=== PATIENT | male | born 1975 | race Caucasian/White ===

== ENCOUNTER 2019-01-21 16:51 | Emergency (ER) | payer MEDICAID, SELFPAY ==
[2019-01-21 17:07] VITALS: BP 132/87; PULSE 70; RESP 20; TEMP 36.9; O2SAT 97
--- NOTE | 2019-01-21 17:12 | DI.RAD_ITS ---
SYMPTOM/DIAGNOSIS: PAIN, S/P DIRECT BLOW RIGHT KNEE: There is no evidence of fracture. A joint effusion is seen. There are degenerative changes of the lateral femoral tibial joint. There is some anterior soft tissue swelling. There is spurring at the patellofemoral joint. IMPRESSION: Joint effusion and anterior soft tissue swelling. No fracture is identified.
[2019-01-21] MEDS: Acetaminophen 500 MG TAB 1000 MG PO (17:17)
--- NOTE | 2019-01-21 17:17 | W.ED.GENAD ---
Discharge Plan Disposition Patient Disposition: HOME Condition: Stable Discharge Details Chief Complaint: Orthopedic Clinical Impression: Contusion of right knee Primary Care Provider: None,None ED Provider: Brennan Jesus Home Meds and New Rx's Prescriptions: No Action oxycodone-acetaminophen [Percocet] 1 EACH tablet 1 ea PO Q6H PRN PRNQty: 20 RF: 0 Discharge Instructions Instructions: Contusion in Adults (ED) Medical Decision Making 43 yo male comes in with righ tknee pain. He was working on a car yesterday and the front strut hit his right knee. Denies loc or hitting head. He has pain over the medial right knee with swelling. Is able to bend to about 30 degrees then limited by pain and can full straighten the leg. I suspect contusion but will xray to eval for fx xray negative on my read, vrad agrees no acute fx but does have joint effusion likely from the contusion. Will have him f/u with pcp if pain continues in a week and return if worsening Differential Diagnosis contusion, sprain, fx Imaging Data Radiologic Study: Attestation: I personally reviewed and interpreted this imaging study as follows: Imaging: X-Ray Radiologist's impression: IMPRESSION: 1. No fracture or dislocation. 2. Moderate joint effusion and mild anterior soft tissue swelling. 3. 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 HPI General Mode of arrival: ambulatory. Date/Time Provider Initiated Documentation: 01/21/19 17:04. Limitations to Documentation: no limitations. Information obtained by: patient. History of Present Illness 43 year old M presents to the emergency department with the chief complaint of right knee pain, described as moderate, Quality is described as aching, and is localized to the right and lower extremity. Patient reports no radiation. Patient started experiencing this day(s) (1) and it has been constant. Rest improves symptom(s), Movement worsens symptoms . Patient notes no other symptoms.. Patient did receive the following treatments prior to arrival, NSAID Related Data Home Medications Medication Instructions Recorded Confirmed oxycodone-acetaminophen [Percocet 1 ea PO Q6H PRN PRN #20 tablet 08/01/15 5-325 mg Tablet] Previous Rx's Medication Instructions Recorded oxycodone-acetaminophen [Percocet 1 ea PO Q6H PRN PRN #20 tablet 08/01/15 5-325 mg Tablet] Allergies Allergy/AdvReac Type Severity Reaction Status Date / Time codeine Allergy Intermediate Hives Unverified 01/21/19 17:09 General Stated Complaint: Orthopedic JJ: 3 Review of Systems Review of Systems All systems reviewed & are unremarkable except as noted in HPI and below Constitutional Denies chills, Denies fever(s) and Denies weakness Cardiovascular Denies chest pain and Denies dyspnea Respiratory Denies cough and Denies dyspnea Gastrointestinal Denies abdominal pain, Denies nausea and Denies vomiting Integumentary/Breasts Denies rash Neurologic Denies weakness PFSH Social History Smoking/Tobacco Use Status: Current every day Drug use: Occasionally Do you feel safe at home: Yes Do you feel safe in your relationship?: Yes Exam Const General: no acute distress Orientation: alert HENMT Head: normal to inspection Ears: external ears normal General nose exam: external nose normal Mouth: moist mucous membranes Eyes General: appearance normal, both eyes and all related structures Neck Neck: normal visual inspection Resp Effort & Inspection: normal respiratory effort and able to speak in complete sentences Cardio Rate: regular rate Skin General skin exam: no rashes or lesions noted Neuro General: alert and oriented x3 Extrem General: normal capillary refill Psych Mental Status: mental status grossly normal Course Vital Signs Temperature 36.9 C 01/21/19 17:07 Pulse 70 01/21/19 17:07 Respiratory Rate 20 01/21/19 17:07 Blood Pressure 132/87 01/21/19 17:07 Pulse Oximetry 97 01/21/19 17:07 Temperature 36.9 C 01/21/19 17:07 Temperature Source Temporal Artery Scan 01/21/19 17:07 Pulse 70 01/21/19 17:07 Respiratory Rate 20 01/21/19 17:07 Respiratory Effort Non-Labored 01/21/19 17:07 Blood Pressure 132/87 01/21/19 17:07 Pulse Oximetry 97 01/21/19 17:07 Pain Level 8 01/21/19 17:17
--- NOTE | 2019-01-21 17:20 | ED.GENADUL_ITS ---
Discharge Plan Disposition Patient Disposition: HOME Condition: Stable Discharge Details Chief Complaint: Orthopedic Clinical Impression: Contusion of right knee Primary Care Provider: None,None ED Provider: Brennan Jesus Home Meds and New Rx's Prescriptions: No Action oxycodone-acetaminophen [Percocet] 1 EACH tablet 1 ea PO Q6H PRN PRNQty: 20 RF: 0 Discharge Instructions Instructions: Contusion in Adults (ED) Medical Decision Making 43 yo male comes in with righ tknee pain. He was working on a car yesterday and the front strut hit his right knee. Denies loc or hitting head. He has pain over the medial right knee with swelling. Is able to bend to about 30 degrees then limited by pain and can full straighten the leg. I suspect contusion but will xray to eval for fx xray negative on my read, vrad agrees no acute fx but does have joint effusion likely from the contusion. Will have him f/u with pcp if pain continues in a week and return if worsening Differential Diagnosis contusion, sprain, fx Imaging Data Radiologic Study: Attestation: I personally reviewed and interpreted this imaging study as follows: Imaging: X-Ray Radiologist's impression: IMPRESSION: 1. No fracture or dislocation. 2. Moderate joint effusion and mild anterior soft tissue swelling. 3. 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 HPI General Mode of arrival: ambulatory . Date/Time Provider Initiated Documentation: 01/21/19 17:04 . Limitations to Documentation: no limitations . Information obtained by: patient . History of Present Illness 43 year old M presents to the emergency department with the chief complaint of right knee pain, described as moderate, Quality is described as aching, and is localized to the right and lower extremity. Patient reports no radiation. Patient started experiencing this day(s) (1) and it has been constant. Rest improves symptom(s), Movement worsens symptoms . Patient notes no other symptoms.. Patient did receive the following treatments prior to arrival, NSAID Related Data Home Medications Medication Instructions Recorded Confirmed oxycodone-acetaminophen [Percocet 1 ea PO Q6H PRN PRN #20 tablet 08/01/15 5-325 mg Tablet] Previous Rx's Medication Instructions Recorded oxycodone-acetaminophen [Percocet 1 ea PO Q6H PRN PRN #20 tablet 08/01/15 5-325 mg Tablet] Allergies Allergy/AdvReac Type Severity Reaction Status Date / Time codeine Allergy Intermediate Hives Unverified 01/21/19 17:09 General Stated Complaint: Orthopedic JJ: 3 Review of Systems Review of Systems All systems reviewed & are unremarkable except as noted in HPI and below Constitutional Denies chills, Denies fever(s) and Denies weakness Cardiovascular Denies chest pain and Denies dyspnea Respiratory Denies cough and Denies dyspnea Gastrointestinal Denies abdominal pain, Denies nausea and Denies vomiting Integumentary/Breasts Denies rash Neurologic Denies weakness PFSH Social History Smoking/Tobacco Use Status: Current every day Drug use: Occasionally Do you feel safe at home: Yes Do you feel safe in your relationship?: Yes Exam Const General: no acute distress Orientation: alert HENMT Head: normal to inspection Ears: external ears normal General nose exam: external nose normal Mouth: moist mucous membranes Eyes General: appearance normal, both eyes and all related structures Neck Neck: normal visual inspection Resp Effort & Inspection: normal respiratory effort and able to speak in complete sentences Cardio Rate: regular rate Skin General skin exam: no rashes or lesions noted Neuro General: alert and oriented x3 Extrem General: normal capillary refill Psych Mental Status: mental status grossly normal Course Vital Signs Temperature 36.9 C 01/21/19 17:07 Pulse 70 01/21/19 17:07 Respiratory Rate 20 01/21/19 17:07 Blood Pressure 132/87 01/21/19 17:07 Pulse Oximetry 97 01/21/19 17:07 Temperature 36.9 C 01/21/19 17:07 Temperature Source Temporal Artery Scan 01/21/19 17:07 Pulse 70 01/21/19 17:07 Respiratory Rate 20 01/21/19 17:07 Respiratory Effort Non-Labored 01/21/19 17:07 Blood Pressure 132/87 01/21/19 17:07 Pulse Oximetry 97 01/21/19 17:07 Pain Level 8 01/21/19 17:17
--- NOTE | 2019-01-21 17:59 | DI.VRAD_ITS ---
EXAM: XR Right Knee, 3 Views EXAM DATE/TIME: 01/21/2019 5:13 PM CLINICAL HISTORY: 43 years old, male; Injury or trauma; Injury history: Hit a direct blow to the anterior knee yesterday; Initial encounter; Blunt trauma; Right; Injury date: 01/21/2019 TECHNIQUE: Imaging protocol: XR Right knee. Views: 3 views. COMPARISON: No relevant prior studies available. FINDINGS: Bones/joints: Severe degenerative joint space narrowing in the lateral compartment with mild lateral marginal spurring. The medial compartment is well-maintained. Moderate-severe patellofemoral spurring. Moderate joint effusion distending the suprapatellar bursa. Soft tissues: Mild anterior soft tissue swelling IMPRESSION: 1. No fracture or dislocation. 2. Moderate joint effusion and mild anterior soft tissue swelling. 3. 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 Dictated and Authenticated by: Lencho Velarde MD. Ordering:MESSI Amin MD
[2019-01-21 18:14] VITALS: BP 132/87; PULSE 70; RESP 20; TEMP 36.9; O2SAT 97
== END 2019-01-21 18:10 | disposition home or self-care (01) ==
PROVIDERS: Emergency Provider Emergency Medicine
DX: S80.01XA Contusion of right knee, initial encounter (principal); M06.861 Other specified rheumatoid arthritis, right knee; W22.8XXA Striking against or struck by other objects, initial encounter
CPT/HCPCS: 29505; 73562; 99283; 99282; L1820

== ENCOUNTER 2021-07-15 17:30 | Outpatient (CLI) | payer MEDICAID, SELFPAY ==
--- NOTE | 2021-07-15 | DI.RAD_ITS ---
Exam(s) XR HAND RT COMPLETE EXAM: XR HAND RT COMPLETE CLINICAL HISTORY: PAIN WRIST AND HAND, RIGHT, 2ND METACARP. TECHNIQUE: 2D digital imaging was performed of the right hand. Three images were obtained. AP, late ral and oblique views were obtained. COMPARISON: CR LEFT THUMB from 06/24/2012 FINDINGS: BONES: No acute fracture is present. No bony destructive lesion is seen. JOINTS: No dislocation present. Mild degenerative changes are seen in the interphalangeal joints of t he fingers. SOFT TISSUE: Normal. IMPRESSION: No acute fracture or dislocation. DATA REPOSITORY: RADIATION DOSE DELIVERED:
--- NOTE | 2021-07-15 18:03 | DI.VRAD_ITS ---
PROCEDURE INFORMATION: Exam: XR Right Hand Exam date and time: 07/15/2021 5:43 PM Age: 45 years old Clinical indication: Right; Patient HX: Pain R hand and wrist, 2nd metacarpal TECHNIQUE: Imaging protocol: XR Right hand. Views: 3 or more views. COMPARISON: No relevant prior studies available. FINDINGS: Bones/joints: There is a well corticated bony fragment distal to the ulnar styloid. This could represent a nonunion versus a congenital abnormality. There is a suspected old healed boxer's fracture of the 5th metacarpal. There is slight degenerative changes of the DIP joints of the 2nd through 5th fingers. Soft tissues: Normal. IMPRESSION: Osseous findings as above. Dictated and Authenticated by: Mayito Ortega MD. Ordering:MARK Meza MD
== END 2021-07-15 17:50 ==
PROVIDERS: Visit Provider Physician Assistant
DX: M79.641 Pain in right hand (principal); M25.531 Pain in right wrist; R93.89 Abnormal findings on diagnostic imaging of other specified body structures
CPT/HCPCS: 73130

== ENCOUNTER 2022-04-12 09:58 | Emergency (ER) | payer MEDICAID, SELFPAY ==
[2022-04-12 10:07] VITALS: BP 117/87; PULSE 60; RESP 16; TEMP 36.7; O2SAT 98
--- NOTE | 2022-04-12 10:19 | W.ED.GENAD ---
Discharge Plan Disposition Patient Disposition: HOME Discharge Details Clinical Impression: Corneal abrasion, right Primary Care Provider: None,None ED Provider: John Acosta Home Meds and New Rx's Prescriptions: No Action No Known Home Meds Discharge Instructions Instructions: Corneal Abrasion (ED) Additional Instructions: Please use the erythromycin ointment 3 times a day. Expect to feel better within 3 days. 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 You may also apply some cool compresses. HPI General Date/Time Provider Initiated Documentation: 04/12/22 10:10. HPI Narrative: Right eye pain. Moderate in severity. Quality: Achy, feels like a foreign body, piece of sand in his eye. No radiation of the pain. 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 He states he was wearing protective eye gear but he thinks he may have had a flash burn to the eye. No alleviating factors. I agreed in fact include being in the sun. No fevers no chills. No decrease in visual acuity secondary to pain. Does not wear contact lenses. No glasses Related Data Home Medications Medication Instructions Recorded Confirmed Unknown [No Known Home Meds] 07/17/21 04/12/22 Allergies Allergy/AdvReac Type Severity Reaction Status Date / Time codeine Allergy Intermediate Hives Verified 04/12/22 10:10 General Stated Complaint: EyeProblem JJ: 4 Review of Systems Narrative: Constitutional negative for fever chills positive for malaise no fatigue. HEENT see HPI. Cardiovascular no dizziness no palpitations Pulmonary no cough GI no nausea no vomiting Skin no rashes Neuro no headaches Psych mild anxiety PFSH All Active Problems (Updated 04/12/22 @ 10:31 by John Acosta MD) Corneal abrasion, right (Acute) Social History Smoking/Tobacco Use Status: Current every day Tobacco Type: cigarettes Smoking risk assessment performed?: Yes Alcohol Intake: never Drug use: Occasionally Substance use type: marijuana Do you feel safe at home: Yes Do you feel safe in your relationship?: Yes Exam Narrative Exam Narrative: Awake alert [place] x3 calm pleasant cooperative HEENT. Right eye. Injected. EOMI. PERRLA Left eye normal Supple neck Respiratory normal work of breathing Cardiovascular normal cap refill warm skin Skin no rashes Neuro grossly intact Course Patient was given 3 drops of tetracaine in the right eye with resolution of symptoms. With lamp examination does reveal corneal defect at 4:00. Central vision spared. Patient is up-to-date with his tetanus. He will be sent home with some erythromycin ointment. Expect him to feel great deal better look Vital Signs Vital signs: Vital Signs Temperature 36.7 C 04/12/22 10:07 Pulse 60 04/12/22 10:07 Respiratory Rate 16 04/12/22 10:07 Blood Pressure 117/87 04/12/22 10:07 Pulse Oximetry 98 04/12/22 10:07 Temperature 36.7 C 04/12/22 10:07 Temperature Source Temporal Artery Scan 04/12/22 10:07 Pulse 60 04/12/22 10:07 Respiratory Rate 16 04/12/22 10:07 Respiratory Effort 04/12/22 10:10 Blood Pressure 117/87 04/12/22 10:07 Blood Pressure Position Supine 04/12/22 10:07 Pulse Oximetry 98 04/12/22 10:07 Oxygen Delivery Method Room Air 04/12/22 10:07 Oxygen Flow Rate 0 04/12/22 10:07 Pain Level 8 04/12/22 10:07
[2022-04-12] MEDS: Erythromycin Ophth Oint 1 GM TUBE OU (10:51)
== END 2022-04-12 10:51 | disposition home or self-care (01) ==
PROVIDERS: Emergency Provider Emergency Medicine
DX: S05.01XA Injury of conjunctiva and corneal abrasion without foreign body, right eye, initial encounter (principal); F17.210 Nicotine dependence, cigarettes, uncomplicated; W89.0XXA Exposure to welding light (arc), initial encounter; Y93.89 Activity, other specified
CPT/HCPCS: 99283; 99284

== ENCOUNTER 2023-02-20 10:16 | Emergency (ER) | payer MEDICAID, SELFPAY ==
[2023-02-20 10:18] VITALS: BP 116/81; PULSE 89; RESP 18; TEMP 36.5; O2SAT 97
--- NOTE | 2023-02-20 10:37 | W.ED.GENAD ---
Discharge Plan Disposition Patient Disposition: Home Condition: Stable Discharge Details Clinical Impression: Laceration of left index finger ED Provider: Juan Gutiérrez Home Meds and New Rx's Prescriptions: New cephalexin 500 mg tablet 500 mg PO TID Qty: 8 0RF Discharge Instructions Instructions: Finger Laceration (ED) Additional Instructions: Keep dressing clean, dry and intact for the next 2 days. Change dressing daily thereafter monitor for signs of infection including increased warmth, redness, swelling or discharge. Be sure to reapply sterile dressing daily. 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 Return to the ER immediately for any worsening or new concerning symptoms. Referrals: [facility] [Provider Group] Discharge Data Discharge Date/Time-TO BE ENTERED AT DEPARTURE: 02/20/23 12:24 Medical Decision Making [age]-year-old male here with accidental tablesaw laceration to distal left second digit medially over DIP, distal sensation including two-point sensation intact, motor intact. Patient provided informed consent to digital block. Digital block was performed with bupivacaine. Block successful without complication. Concern for complex laceration involving bone. Consider fracture. Plan for x-ray and reassess. Patient will require tetanus booster. -- X-ray was reviewed and interpreted by radiology: No fracture or bony involvement. Wound was irrigated with copious sterile saline. Primary closure was performed. Please see procedure note. Given depth, location and potential contaminated wound, I will initiate prophylactic course of cephalexin. Sterile dressing applied. Usual customary discharge instructions were reviewed with the patient. HPI General Mode of arrival: ambulatory. Date/Time Provider Initiated Documentation: 02/20/23 10:35. Limitations to Documentation: no limitations. Information obtained by: patient. HPI Narrative: 47-year-old male presents with laceration to his left second digit that occurred just prior to arrival. Patient notes he was using a table saw and accidentally cut his finger. Wound has been bleeding. Bleeding improved with dressing. Unclear of last tetanus shot. Related Data Home Medications Medication Instructions Recorded Confirmed cephalexin 500 mg tablet 500 mg PO TID #8 tabs 02/20/23 Previous Rx's Medication Instructions Recorded cephalexin 500 mg tablet 500 mg PO TID #8 tabs 02/20/23 Allergies Allergy/AdvReac Type Severity Reaction Status Date / Time codeine Allergy Intermediate Hives Verified 02/20/23 10:22 General Stated Complaint: Laceration JJ: 4 Review of Systems Constitutional Constitutional: Denies fever(s) Integumentary/Breasts Skin/Breast: Reports as per HPI PFSH All Active Problems (Updated 02/20/23 @ 12:15 by Juan Gutiérrez MD) Laceration of left index finger (Acute) Social History Smoking/Tobacco Use Status: Current every day Tobacco Type: cigarettes Smoking risk assessment performed?: Yes Alcohol Intake: never Drug use: Occasionally Substance use type: marijuana Do you feel safe at home: Yes Do you feel safe in your relationship?: Yes Exam Extrem Left upper extremity: hand Details: neuromotor exam normal, neurosensory exam normal (distal 2pt intact), normal ROM of fingers and laceration (3 cm left distal lateral 2nd digit laceration oozing blood) Course Vital Signs Vital signs: Vital Signs Temperature 36.5 C 02/20/23 10:18 Pulse 89 02/20/23 10:18 Respiratory Rate 18 02/20/23 10:18 Blood Pressure 116/81 02/20/23 10:18 Pulse Oximetry 97 02/20/23 10:18 Temperature 36.5 C 02/20/23 10:18 Temperature Source Skin 02/20/23 10:18 Pulse 89 02/20/23 10:18 Respiratory Rate 18 02/20/23 10:18 Blood Pressure 116/81 02/20/23 10:18 Blood Pressure Position Sitting 02/20/23 10:18 Pulse Oximetry 97 02/20/23 10:18 Oxygen Delivery Method Room Air 02/20/23 10:18 Oxygen Flow Rate 0 02/20/23 10:18 Pain Level 7 02/20/23 10:18 Procedures Nerve Block Nerve Block 1: Time out performed: Yes Local Anesthetic: Bupivicaine 0.5% Amount of anesthesia used (mL): 5 Nerve Blocks: digital Procedure Successful: Yes Patient Tolerated Procedure: well Complications: none
--- NOTE | 2023-02-20 10:52 | DI.RAD_ITS ---
Exam(s) XR FINGER LT INDEX EXAM: XR FINGER LT INDEX CLINICAL HISTORY: laceration, table saw. TECHNIQUE: 2D digital imaging was performed. COMPARISON: No exams were available for comparison FINDINGS: 3 views There is linear soft tissue injury the distal aspect of the index finger. There is no obvious fractu re of the distal phalanx and tuft of the distal phalanx nor radiopaque foreign body. Bone density no rmal. No osseous lesions. No radiographic evidence of osteomyelitis. IMPRESSION: Soft tissue laceration. No obvious fracture of the distal phalanx. No radiopaque foreign body. DATA REPOSITORY: RADIATION DOSE DELIVERED:
[2023-02-20] MEDS: Cephalexin 500 MG CAP PO (12:18)
== END 2023-02-20 12:24 | disposition home or self-care (01) ==
PROVIDERS: Emergency Provider Student in an Organized Health Care Education/Training Program
DX: S61.211A Laceration without foreign body of left index finger without damage to nail, initial encounter (principal); W29.3XXA Contact with powered garden and outdoor hand tools and machinery, initial encounter
CPT/HCPCS: 90471; 99284; 73140

== ENCOUNTER 2025-08-10 13:12 | Emergency (ER) | payer MEDICAID, SELFPAY ==
[2025-08-10 13:15] VITALS: BP 150/93; PULSE 74; RESP 18; TEMP 36.8; O2SAT 98
--- NOTE | 2025-08-10 13:30 | DI.RAD_ITS ---
Exam(s) XR FOOT RT COMPLETE EXAM: XR FOOT RT COMPLETE CLINICAL HISTORY: right foot pain. TECHNIQUE: 2D digital imaging was performed. COMPARISON: No exams were available for comparison FINDINGS: 3 views There is a healed oblique fracture in the diaphysis of the 5th metatarsal. There is no evidence of acute fracture or diastasis of the Lisfranc joint. Great toe metatarsophalangeal joint appears unremarkable. There is a 1 millimeter calcific density in the medial aspect of the interphalangeal joint of the great toe of questionable significance. There are no osseous lesions nor erosions. No pes planus. IMPRESSION: Healed 5th metatarsal fracture. No obvious acute fractures. DATA REPOSITORY: RADIATION DOSE DELIVERED:
--- NOTE | 2025-08-11 10:07 | ED.GENADUL_ITS ---
Discharge Plan Disposition Patient Disposition: Home Condition: Stable Discharge Details Clinical Impression: Contusion of foot Primary Care Provider: None,None ED Provider: Pili Menjivar Home Meds and New Rx's Prescriptions: No Action No Known Home Meds Discharge Instructions Additional Instructions: Take ibuprofen and Tylenol as needed for pain Apply ice Bearing as tolerated If you are still in pain in the next week, I do recommend reassessment and possible imaging at the discretion of the provider I placed you on the list to establish care with a primary care physician Stand Alone Forms: Portal Information Discharge Data Discharge Date/Time-TO BE ENTERED AT DEPARTURE: 08/10/25 15:16 HPI General Date/Time Provider Initiated Documentation: 08/10/25 13:29 . HPI Narrative: This 29-year-old male presents with injury to right foot yesterday. Dropped a 50 pound window. Denies any additional injuries. States that the pain is mild at rest but when he attempts to put pressure on it the pain increases dramatically. Patient is otherwise well in appearance without any additional evidence of trauma, no tenderness to right ankle per patient denies history of coagulopathy. Related Data Home Medications ?Medication ?Instructions ?Recorded ?Confirmed Unknown [No Known Home Meds] 03/03/23 1 10/11/24 Allergies Allergy/AdvReac Type Severity Reaction Status Date / Time codeine Allergy Intermediate Hives Verified 08/10/25 13:17 General Stated Complaint: Orthopedic JJ: 4 Exam Narrative Exam Narrative: Right foot with tenderness, contusion, neurovascularly intact, no tenderness to right ankle. Ecchymosis noted. Course Vital Signs Vital signs: Vital Signs Temperature 36.8 C 08/10/25 13:15 Pulse 74 08/10/25 13:15 Respiratory Rate 18 08/10/25 13:15 Blood Pressure 150/93 H 08/10/25 13:15 Pulse Oximetry 98 08/10/25 13:15 Temperature 36.8 C 08/10/25 13:15 Pulse 74 08/10/25 13:15 Respiratory Rate 18 08/10/25 13:15 Blood Pressure 150/93 H 08/10/25 13:15 Pulse Oximetry 98 08/10/25 13:15 Pain Level 97 08/10/25 13:15 Medical Decision Making Results: Foot x-ray per radiology interpretation my review does not show evidence of acute abnormality Assessment and plan: Patient placed in a postop boot for comfort. Recheck in 1 week with persistent pain, might need repeat imaging if still experiencing swelling and tenderness. Declines need for work note. Return precautions reviewed and patient expressed understanding Motrin and Tylenol for pain control PFSH All Active Problems (Updated 08/10/25 @ 14:56 by RADHA Burnham) Contusion of foot (Acute) Social History Smoking/Tobacco Use Status: Current every day Tobacco Type: cigarettes Smoking risk assessment performed?: Yes Alcohol Intake: never Drug use: Occasionally Substance use type: marijuana Current gender identity: male Do you feel safe at home: Yes Do you feel safe in your relationship?: Yes
== END 2025-08-10 15:16 | disposition home or self-care (01) ==
PROVIDERS: Emergency Provider Physician Assistant
DX: S90.31XA Contusion of right foot, initial encounter (principal); X58.XXXA Exposure to other specified factors, initial encounter
CPT/HCPCS: 99283; 73630